=== PATIENT | male | born 1985 | race Caucasian/White ===

== ENCOUNTER 2016-11-05 09:56 | Emergency (ER) | payer SELFPAY ==
[2016-11-05] MEDS ORDERED: NORMAL SALINE 1000 ML 1,000 ML IV ONE (10:18)
[2016-11-05] MEDS ORDERED: LORAZEPAM INJ 2 MG/1 ML VIAL IV ONE ×2 (10:18→13:30)
--- NOTE | 2016-11-05 10:22 | ER Document Report ---
ED Substance Abuse / Acc. OD - General Mode of Arrival: Medic Information source: Patient TRAVEL OUTSIDE OF THE U.S. IN LAST 30 DAYS: No - HPI Patient complains to provider of: Alcohol withdrawal Onset: This morning Associated Symptoms: Other - see notes above <HECTOR SORTO - Last Filed: 11/05/16 10:24> <WILDA LOMBARDO - Last Filed: 11/05/16 14:35> - General Chief Complaint: Alcohol Withdrawl Stated Complaint: WITHDRAWAL Time Seen by Provider: 11/05/16 10:09 Notes: 31 year old male with history of alcohol abuse presents to the ED complaining of alcohol withdrawal that started after he stopped drinking this morning. Patient reports that his last drink was this morning and he stopped because he is 'tired of it.' Patient has been through a detox program at [facility] in August 2015 , but states that he has not reached out to anyone at [facility]. (HECTOR SORTO) - Related Data Allergies/Adverse Reactions: No Known Allergies Allergy (Verified 12/06/13 12:51) Past Medical History - General Information source: Patient - Social History Smoking Status: Never Smoker Frequency of alcohol use: Heavy Family History: Reviewed & Not Pertinent Psychiatric Medical History: Reports: Hx Depression Surgical Hx: Negative - Immunizations Hx Diphtheria, Pertussis, Tetanus Vaccination: Yes <HECTOR SORTO - Last Filed: 11/05/16 10:24> Review of Systems - Review of Systems Constitutional: See HPI, Other - 'alcohol withdrawal' EENT: No symptoms reported Cardiovascular: No symptoms reported Respiratory: No symptoms reported Gastrointestinal: No symptoms reported Genitourinary: No symptoms reported Male Genitourinary: No symptoms reported Musculoskeletal: No symptoms reported Skin: No symptoms reported Hematologic/Lymphatic: No symptoms reported Neurological/Psychological: No symptoms reported -: Yes All other systems reviewed and negative <HECTOR SORTO - Last Filed: 11/05/16 10:24> Physical Exam - General General appearance: Alert, Other - Generalized tremor. In distress: None - HEENT Head: Normocephalic, Atraumatic Eyes: Normal Extraocular movements intact: Yes Pupils: PERRL - Respiratory Respiratory status: No respiratory distress Breath sounds: Normal - Cardiovascular Rhythm: Regular Heart sounds: Normal auscultation Pulses: Normal: Radial - Abdominal Inspection: Normal Distension: No distension Bowel sounds: Normal Tenderness: Nontender - Back Back: Normal - Extremities General upper extremity: Normal inspection, Normal ROM General lower extremity: Normal inspection, Normal ROM - Neurological Neuro grossly intact: Yes - Psychological Associated symptoms: Normal affect, Normal mood - Skin Skin Temperature: Warm Skin Moisture: Dry Skin Color: Normal <HECTOR SORTO - Last Filed: 11/05/16 10:24> Course - Laboratory Result Diagrams: 11/05/16 10:30 11/05/16 10:30 - EKG Interpretation by Ca EKG shows normal: Sinus rhythm, Antlers, QRS Complexes, ST-T Waves. abnormal: Intervals - Borderline prolonged QT interval Rate: Normal - 76 Rhythm: Arrthymia Antlers/QRS: LAHB/LAFB When compared to previous EKG there are: No significant change <WILDA LOMBARDO - Last Filed: 11/05/16 14:35> - Vital Signs Vital signs: Temp Pulse Resp BP Pulse Ox 99.1 F 26 H 156/109 H 97 11/05/16 11:16 11/05/16 12:01 11/05/16 12:01 11/05/16 12:01 - Laboratory Laboratory results interpreted by me: 11/05/16 10:30 BUN 4 L Glucose 112 H AST 232 H ALT 104 H Salicylates < 1.0 L Acetaminophen < 10 L Discharge <SORTO,HECTOR - Last Filed: 11/05/16 10:24> <WILDA LOMBARDO - Last Filed: 11/05/16 14:35> - Discharge Clinical Impression: Alcohol withdrawal Qualifiers: Complication of substance-induced condition: uncomplicated Qualified Code(s): F10.230 - Alcohol dependence with withdrawal, uncomplicated Condition: Stable Disposition: HOME, SELF-CARE Additional Instructions: Alcohol Withdrawal Your symptoms are caused by alcohol withdrawal. After a period of frequent drinking, the brain and body are changed by the alcohol. When you quit or reduce your drinking, the nervous system becomes unstable. Withdrawal symptoms can start a few hours after your last drink, but sometimes don't begin until a couple of days later. Symptoms can include shakiness, sweating, insomnia, nausea , vomiting, fearfulness, hallucinations, and seizures. In addition to the acute effects of alcohol withdrawal, we often have to deal with the medical effects of alcoholism. These problems often include dehydration, stomach irritation, intestinal bleeding, low blood sugar, liver disease, and pancreas inflammation. Treatment for alcohol withdrawal includes mild sedatives, vitamins, and fluids. You need to be with someone who can help if symptoms become severe. Many patients can withdraw at home. Admission to the hospital or a detox facility may be necessary if withdrawal symptoms are severe and uncontrollable. Abstaining from alcohol is the only effective long-term treatment. If you start drinking again, you will not be able to control yourself after the first drink. Treatment programs are available. In addition, many alcoholics benefit from Alcoholics Anonymous or other support groups available through your counselor or cheondoism tar distillation supervisor. AL-ANON and ALA-TEEN are support groups for friends and family members of an alcoholic. Go to the emergency room if you develop persistent vomiting, severe abdominal pain, fever, shortness of breath, hallucinations, uncontrollable tremors, or seizures. [facility] provided with demographic and frequency of use information. Patient to call the [facility] Mobile Crisis Number once discharged so they can assist with detox/rehab placement. Prescriptions: Lorazepam [Ativan 1 mg Tablet] 1 mg PO Q8 #10 tablet Referrals: [facility] [Provider Group] - 11/05/16 (Immediately following discharge call the crisis number) LUIS CARLOS BERMEO DO [Primary Care Provider] - Follow up as needed Scribe Attestation: 11/05/16 14:35 I personally performed the services described in the documentation, reviewed and edited the documentation which was dictated to the scribe in my presence, and it accurately records my words and actions. (WILDA LOMBARDO) Scribe Documentation - Scribe Written by Gabriel:: Gabriel Awad, 11/05/2016 1022 acting as scribe for :: Anahy <HECTOR SORTO - Last Filed: 11/05/16 10:24>
[2016-11-05 10:54] LABS: ABSOLUTE LYMPHOCYTES (AUTO) 0.6 10^3/uL (0.5-4.7); ABSOLUTE MONOCYTES (AUTO) 0.4 10^3/uL (0.1-1.4); ABSOLUTE NEUT (AUTO) 3.2 10^3/uL (1.7-8.2); BASOPHILS % (AUTO) 0.7 % (0-2); EOSINOPHILS % (AUTO) 0.1 % (0-6); HEMATOCRIT 44.1 % (37.9-51.0); HEMOGLOBIN 14.9 g/dL (13.5-17.0); HGB HCT DIFFERENCE 0.6; LYMPHOCYTES % (AUTO) 13.4 % (13-45); MEAN CORPUSCULAR HEMOGLOBIN 32.6 pg (27.0-33.4); MEAN CORPUSCULAR HGB CONC 33.8 g/dL (32.0-36.0); MEAN CORPUSCULAR VOLUME 96 fl (80-97); MONOCYTES % (AUTO) 9.8 % (3-13); RED BLOOD COUNT 4.57 10^6/uL (4.35-5.55); RED CELL DISTRIBUTION WIDTH 13.8 % (11.5-14.0); WHITE BLOOD COUNT 4.3 10^3/uL (4.0-10.5)
[2016-11-05 11:14] LABS: ALANINE AMINOTRANSFERASE 104 U/L (21-72); ALBUMIN 4.1 g/dL (3.5-5.0); ALCOHOL 12 mg/dL (NONE DETECTED); ALKALINE PHOSPHATASE 83 U/L (38-126); ANION GAP 14 (5-19); ASPARTATE AMINO TRANSFERASE 232 U/L (17-59); BILIRUBIN,DIRECT 0.4 mg/dL (0.0-0.4); BILIRUBIN,TOTAL 0.8 mg/dL (0.2-1.3); BLOOD UREA NITROGEN 4 mg/dL (7-20); CALCIUM 9.1 mg/dL (8.4-10.2); CARBON DIOXIDE 23 mmol/L (22-30); CHLORIDE 101 mmol/L (98-107); CREATININE RESULT 0.66 mg/dL (0.52-1.25); GLUCOSE 112 mg/dL (75-110); POTASSIUM 3.7 mmol/L (3.6-5.0); SODIUM 138.2 mmol/L (137-145); TOTAL PROTEIN 7.4 g/dL (6.3-8.2)
[2016-11-05 11:47] LABS: APPEARANCE,URINE CLEAR; BILIRUBIN,URINE NEGATIVE (NEGATIVE); GLUCOSE, URINE NEGATIVE (NEGATIVE); KETONES,URINE NEGATIVE (NEGATIVE); LEUKOCYTE ESTERASE,URINE NEGATIVE (NEGATIVE); NITRITE,URINE NEGATIVE (NEGATIVE); PROTEIN,URINE NEGATIVE (NEGATIVE); URINE SPECIFIC GRAVITY 1.005; UROBILINOGEN,URINE NEGATIVE mg/dL (<2.0)
[2016-11-05 12:10] LABS: URINE BARBITURATES SCREEN NEGATIVE; URINE METHADONE SCREEN NEGATIVE; URINE OPIATES LOW NEGATIVE; URINE PHENCYCLIDINE SCREEN NEGATIVE
--- NOTE | 2016-11-05 14:20 | ER Document Report ---
Addendum entered and electronically signed by CRISTINO SAGE LPC 11/05/16 19: 35: ED Psych Disorder / Suicide - General Chief Complaint: Alcohol Withdrawl Stated Complaint: WITHDRAWAL Time Seen by Provider: 11/05/16 10:09 Mode of Arrival: Ambulatory TRAVEL OUTSIDE OF THE U.S. IN LAST 30 DAYS: No - HPI Notes: Initial evaluation conducted 11/05/2016 at 1242. Patient is a 31 year old male who presented to the ED today for alcohol withdrawal and detox. He reported his last drinks were at midnight last night and then 0600 this morning. He identified for the past year he has drank 18-20 12 ounce Natural Light beers a day. He stated he hasn't been eating because the beer has been filling him up and he hasn't been hungry. He noted he had been picking at his lunch try trying to eat a little. He confirmed previous inpatient detox/rehab, the most recent was August 2015 at [facility] in [place]. He stated he has gone 1.5 years of sobriety. He reported a seizure history from withdrawal. He stated he felt like he had one this morning but EMS told him it wasn't one. He stated he felt like he was "jerking around and his eyes were rolling back in his head." Observed patient slightly shaky and trembly. He denied SI/HI. He stated he did follow up with [facility] in August 2015 (not sure if her meant the detox or if he had follow up at local agency afterwards). Patient was alert and oriented. Mood was depressed with congruent affect though patient was likely starting to begin alcohol withdrawal. He denied SI/HI. He did not appear to be responding to internal stimuli AEB his ability to stay focused and answering questions appropriately when addressed. Thought processes were linear. Conversational speech was soft in tone yet audible and understandable. Intellectual abilities are estimated to be average. Insight, judgment and impulse control are fair AEB seeking help. 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 Psychiatrically he is cleared. He does not meet IVC criteria. He denied SI/HI, and there was no observed psychosis. Also none of these were presenting concerns. Contacted [facility], spoke to Mai, and provided basic demographic information as well as substance of use (frequency, amount, last use, etc.). Provided patient with outpatient resource sheet with emphasis on [facility] number. Informed him this clinician had already provided information and he just needs to call the number back once discharged from the ED so they can assist in finding him inpatient detox. Consulted with Dr. Marquez regarding the management and care of patient. ED Doctor in agreement with recommendations. - Related Data Allergies/Adverse Reactions: No Known Allergies Allergy (Verified 12/06/13 12:51) Original Note: ED Psych Disorder / Suicide - General Chief Complaint: Alcohol Withdrawl Stated Complaint: WITHDRAWAL Time Seen by Provider: 11/05/16 10:09 Mode of Arrival: Ambulatory Information source: Patient TRAVEL OUTSIDE OF THE [place] IN LAST 30 DAYS: No - HPI Patient complains to provider of: Other - ETOH Withdrawal and wanting detox Suicide Risk Factors: Male, Substance abuse Normal mood: No Associated symptoms: Depressed Similar symptoms previously: Yes Notes: Patient is a 31 year old male who presented to the ED today for ETOH withdrawal and seeking detox. - Related Data Allergies/Adverse Reactions: No Known Allergies Allergy (Verified 12/06/13 12:51) Past Medical History - General Information source: Patient - Social History Smoking Status: Never Smoker Chew tobacco use (# tins/day): No Frequency of alcohol use: Heavy Drug Abuse: None Family History: Reviewed & Not Pertinent Psychiatric Medical History: Reports: Hx Depression Surgical Hx: Negative - Immunizations Hx Diphtheria, Pertussis, Tetanus Vaccination: Yes Physical Exam - Vital signs Vitals: Resp Pulse Ox 19 97 11/05/16 10:11 11/05/16 10:11 Course - Vital Signs Vital signs: Temp Pulse Resp BP Pulse Ox 99.1 F 26 H 156/109 H 97 11/05/16 11:16 11/05/16 12:01 11/05/16 12:01 11/05/16 12:01 - Laboratory Result Diagrams: 11/05/16 10:30 11/05/16 10:30 Laboratory results interpreted by me: 11/05/16 10:30 BUN 4 L Glucose 112 H AST 232 H ALT 104 H Salicylates < 1.0 L Acetaminophen < 10 L Discharge - Discharge Clinical Impression: Alcohol withdrawal Additional Instructions: Alcohol Withdrawal Your symptoms are caused by alcohol withdrawal. After a period of frequent drinking, the brain and body are changed by the alcohol. When you quit or reduce your drinking, the nervous system becomes unstable. Withdrawal symptoms can start a few hours after your last drink, but sometimes don't begin until a couple of days later. Symptoms can include shakiness, sweating, insomnia, nausea , vomiting, fearfulness, hallucinations, and seizures. In addition to the acute effects of alcohol withdrawal, we often have to deal with the medical effects of alcoholism. These problems often include dehydration, stomach irritation, intestinal bleeding, low blood sugar, liver disease, and pancreas inflammation. Treatment for alcohol withdrawal includes mild sedatives, vitamins, and fluids. You need to be with someone who can help if symptoms become severe. Many patients can withdraw at home. Admission to the hospital or a detox facility may be necessary if withdrawal symptoms are severe and uncontrollable. Abstaining from alcohol is the only effective long-term treatment. If you start drinking again, you will not be able to control yourself after the first drink. Treatment programs are available. In addition, many alcoholics benefit from Alcoholics Anonymous or other support groups available through your counselor or jain proof sorter. AL-ANON and ALA-TEEN are support groups for friends and family members of an alcoholic. Go to the emergency room if you develop persistent vomiting, severe abdominal pain, fever, shortness of breath, hallucinations, uncontrollable tremors, or seizures. [facility] Mobile [facility] provided with demographic and frequency of use information. Patient to call the [facility] Mobile Crisis Number once discharged so they can assist with detox/rehab placement. Referrals: LUIS CARLOS BERMEO DO [Primary Care Provider] - Follow up as needed [facility] [Provider Group] - 11/05/16 (Immediately following discharge call the crisis number)
[2016-11-05 15:11] VITALS: BP 158/99
--- NOTE | 2016-11-05 17:57 | EKG REPORT ---
SEVERITY:- ABNORMAL ECG - SINUS ARRHYTHMIA, RATE 59-101 LEFT ANTERIOR FASCICULAR BLOCK BORDERLINE PROLONGED QT INTERVAL : Confirmed by: Marianna Larry MD 05-Nov-2016 17:55:47
== END 2016-11-05 15:11 | disposition home or self-care (01) ==
LOC: ER 09:56
DX: F10.239 Alcohol dependence with withdrawal, unspecified (principal)
CPT/HCPCS: 93005; 96376; 99285; 96374; 36415; 80307 ×4; 85025; 80053; 81001; 93010; J2060; J7030

== ENCOUNTER 2016-11-08 09:12 | Emergency (ER) | payer SELFPAY ==
--- NOTE | 2016-11-08 09:23 | ER Document Report ---
ED General - General Mode of Arrival: Ambulatory Information source: Patient TRAVEL OUTSIDE OF THE [place]. IN LAST 30 DAYS: No - HPI Onset: Other - Refer to HPI notes Similar symptoms previously: Yes Recently seen / treated by doctor: Yes <SIMON SPARKS - Last Filed: 11/08/16 09:42> <WILDA LOMBARDO - Last Filed: 11/08/16 10:09> - General Stated Complaint: POSSIBLE ETOH Time Seen by Provider: 11/08/16 09:18 Notes: Patient is a 31 year old male presenting to the emergency department for EtOH detoxification. Patient was seen in this department on 11/05/16 for the same and was evaluated by the mental health team, sent home with Ativan, and told to follow up with [facility] for detox. Patient states he did not take the advice and follow his discharge instructions. Patient states he has called [facility] and they told him to come to the ED. Patient drank 18 beers over the last 24 hours. Patient states he did not drink any EtOH since he was discharged on Saturday (11/05) until he had the 18 pack. Patient has been to [facility] for detox in August 2015. Patient has no known drug allergies. (SIMON SPARKS) - Related Data Allergies/Adverse Reactions: No Known Allergies Allergy (Verified 12/06/13 12:51) Past Medical History - General Information source: Patient - Social History Smoking Status: Never Smoker Cigarette use (# per day): No Chew tobacco use (# tins/day): No Frequency of alcohol use: Heavy Drug Abuse: None Family History: None Patient has suicidal ideation: No Patient has homicidal ideation: No Psychiatric Medical History: Reports: Hx Depression Surgical Hx: Negative - Immunizations Hx Diphtheria, Pertussis, Tetanus Vaccination: Yes <SIMON SPARKS - Last Filed: 11/08/16 09:42> Review of Systems - Review of Systems Constitutional: See HPI EENT: No symptoms reported Cardiovascular: No symptoms reported Respiratory: No symptoms reported Gastrointestinal: No symptoms reported Genitourinary: No symptoms reported Male Genitourinary: No symptoms reported Musculoskeletal: No symptoms reported Skin: No symptoms reported Hematologic/Lymphatic: No symptoms reported Neurological/Psychological: No symptoms reported -: Yes All other systems reviewed and negative <SIMON SPARKS - Last Filed: 11/08/16 09:42> Physical Exam - General General appearance: Appears well, Alert In distress: Mild - HEENT Head: Normocephalic, Atraumatic Eyes: Normal Pupils: PERRL Mucous membranes: Moist - Respiratory Respiratory status: No respiratory distress Chest status: Nontender Breath sounds: Normal Chest palpation: Normal - Cardiovascular Rhythm: Regular Heart sounds: Normal auscultation Murmur: No - Abdominal Inspection: Normal Distension: No distension Bowel sounds: Normal Tenderness: Nontender Organomegaly: No organomegaly - Back Back: Normal, Nontender - Extremities General upper extremity: Normal inspection, Normal ROM, Normal strength General lower extremity: Normal inspection, Normal ROM, Normal strength - Neurological Neuro grossly intact: Yes Cognition: Normal Orientation: AAOx4 [place] Coma Scale Eye Opening: Spontaneous [place] Coma Scale Verbal: Oriented [place] Coma Scale Motor: Obeys Commands [place] Coma Scale Total: 15 Speech: Normal - Psychological Associated symptoms: Normal affect, Normal mood - Skin Skin Temperature: Warm Skin Moisture: Dry <SIMON SPARKS - Last Filed: 11/08/16 09:42> Course - Laboratory Result Diagrams: 11/08/16 09:26 11/08/16 09:26 <SIMON SPARKS - Last Filed: 11/08/16 09:42> - Laboratory Result Diagrams: 11/08/16 09:26 11/08/16 09:26 <WILDA LOMBARDO - Last Filed: 11/08/16 10:09> - Re-evaluation Re-evalutation: 11/08/16 10:03 The patient's alcohol level was undetectable, and he is beginning to have some shakes at this time. He will be given a dose of potassium for a potassium of 3.2, and a dose of Ativan prior to discharge over [facility]. (WILDA LOMBARDO) - Laboratory Laboratory results interpreted by me: 11/08/16 11/08/16 09:26 09:26 Seg Neutrophils % 81.9 H Lymphocytes % 9.5 L Potassium 3.2 L Glucose 116 H AST 189 H ALT 131 H Discharge <SIMON SPARKS - Last Filed: 11/08/16 09:42> <WILDA LOMBARDO - Last Filed: 11/08/16 10:09> - Discharge Clinical Impression: Alcoholism Condition: Stable Disposition: HOME, SELF-CARE Additional Instructions: Your lab work today was unremarkable other than a potassium level that was a little low. Your given a dose of potassium. You should increase potassium in your diet. Go to [facility] now to start the process for an alcohol detox program. Referrals: LUIS CARLOS BERMEO, [Primary Care Provider] - Follow up as needed [facility] [Provider Group] - 11/08/16 Jannaibe Attestation: 11/08/16 10:03 I personally performed the services described in the documentation, reviewed and edited the documentation which was dictated to the scribe in my presence, and it accurately records my words and actions. (WILDA LOMBARDO) Scribe Documentation - Scribe Written by Gabriel:: Gabriel Reyes 11/08/16 9:41 acting as scribe for :: Anahy <SIMON SPARKS - Last Filed: 11/08/16 09:42>
[2016-11-08 09:37] LABS: ABSOLUTE LYMPHOCYTES (AUTO) 0.8 10^3/uL (0.5-4.7); ABSOLUTE MONOCYTES (AUTO) 0.7 10^3/uL (0.1-1.4); ABSOLUTE NEUT (AUTO) 6.8 10^3/uL (1.7-8.2); BASOPHILS % (AUTO) 0.4 % (0-2); EOSINOPHILS % (AUTO) 0.3 % (0-6); HEMATOCRIT 43.3 % (37.9-51.0); HEMOGLOBIN 14.7 g/dL (13.5-17.0); HGB HCT DIFFERENCE 0.8; LYMPHOCYTES % (AUTO) 9.5 % (13-45); MEAN CORPUSCULAR VOLUME 97 fl (80-97); MONOCYTES % (AUTO) 7.9 % (3-13); RED BLOOD COUNT 4.47 10^6/uL (4.35-5.55); RED CELL DISTRIBUTION WIDTH 13.6 % (11.5-14.0); SEGMENTED NEUTROPHILS % (AUTO) 81.9 % (42-78); WHITE BLOOD COUNT 8.3 10^3/uL (4.0-10.5)
[2016-11-08 09:56] LABS: ALANINE AMINOTRANSFERASE 131 U/L (21-72); ALBUMIN 4.3 g/dL (3.5-5.0); ALKALINE PHOSPHATASE 75 U/L (38-126); ANION GAP 13 (5-19); ASPARTATE AMINO TRANSFERASE 189 U/L (17-59); BILIRUBIN,DIRECT 0.4 mg/dL (0.0-0.4); BLOOD UREA NITROGEN 8 mg/dL (7-20); CALCIUM 9.3 mg/dL (8.4-10.2); CARBON DIOXIDE 22 mmol/L (22-30); CHLORIDE 105 mmol/L (98-107); CREATININE RESULT 0.71 mg/dL (0.52-1.25); GLUCOSE 116 mg/dL (75-110); MAGNESIUM 1.7 mg/dL (1.6-2.3); POTASSIUM 3.2 mmol/L (3.6-5.0); SODIUM 140.1 mmol/L (137-145); TOTAL PROTEIN 7.4 g/dL (6.3-8.2)
[2016-11-08 10:00] LABS: ALCOHOL < 10 mg/dL (NONE DETECTED)
[2016-11-08] MEDS ORDERED: POTASSIUM CHLORIDE 10 MEQ TABLET.SA PO ONE (10:00)
[2016-11-08] MEDS ORDERED: LORAZEPAM 1 MG TABLET PO ONE (10:01)
[2016-11-08 10:40] LABS: APPEARANCE,URINE CLEAR; BILIRUBIN,URINE NEGATIVE (NEGATIVE); GLUCOSE, URINE NEGATIVE (NEGATIVE); KETONES,URINE NEGATIVE (NEGATIVE); LEUKOCYTE ESTERASE,URINE NEGATIVE (NEGATIVE); NITRITE,URINE NEGATIVE (NEGATIVE); PROTEIN,URINE NEGATIVE (NEGATIVE); URINE SPECIFIC GRAVITY 1.008; UROBILINOGEN,URINE NEGATIVE mg/dL (<2.0)
[2016-11-08 10:46] VITALS: BP 144/88
== END 2016-11-08 10:56 | disposition home or self-care (01) ==
LOC: ER 09:12
DX: F10.20 Alcohol dependence, uncomplicated (principal)
CPT/HCPCS: 36415; 80053; 80307; 81001; 83690; 83735; 85025; 99284

== ENCOUNTER 2017-02-12 22:21 | Emergency (ER) | payer SELFPAY ==
[2017-02-12 23:06] VITALS: BP 113/66
--- NOTE | 2017-02-13 01:22 | RADIOLOGY REPORT (SQ) ---
EXAM DESCRIPTION: CT HEAD WITHOUT COMPLETED DATE/TIME: 02/13/2017 12:31 am REASON FOR STUDY: trauma COMPARISON: None. TECHNIQUE: Axial images acquired through the brain without intravenous contrast. Images reviewed wi th bone, brain and subdural windows. Images stored on PACS. All CT scanners at this facility use dose modulation, iterative reconstruction, and/or weight based d osing when appropriate to reduce radiation dose to as low as reasonably achievable (ALARA). [facility]: Dose Right [facility]: CareDose [facility]: Dose Right [facility]: Teradose 4D [facility]: [employer] RADIATION DOSE: Up-to-date CT equipment and radiation dose reduction techniques were employed. CTDIv ol: 64.6 mGy. DLP: 1292 mGy-cm. mGy. LIMITATIONS: None. FINDINGS: VENTRICLES: Normal size and contour. CEREBRUM: No masses. No hemorrhage. No midline shift. No evidence for acute infarction. Normal gra y/white matter differentiation. No areas of low density in the white matter. CEREBELLUM: No masses. No hemorrhage. No alteration of density. No evidence for acute infarction. EXTRAAXIAL SPACES: No fluid collections. No masses. ORBITS AND GLOBE: No intra- or extraconal masses. Normal contour of globe without masses. CALVARIUM: No fracture. PARANASAL SINUSES: No fluid or mucosal thickening. SOFT TISSUES: No mass or hematoma. OTHER: No other significant finding. IMPRESSION: NORMAL BRAIN CT WITHOUT CONTRAST. EVIDENCE OF ACUTE STROKE: NO. COMMENT: Quality ID # [id number]: Final reports with documentation of one or more dose reduction techniques (e.g., Automated exposure control, adjustment of the mA and/or kV according to patient size, use of iterative reconstruction technique) TECHNICAL DOCUMENTATION: JOB ID: [id number]- All Rights Reserved
--- NOTE | 2017-02-13 01:28 | RADIOLOGY REPORT (SQ) ---
EXAM DESCRIPTION: CT FACIAL AREA WITHOUT COMPLETED DATE/TIME: 02/13/2017 12:31 am REASON FOR STUDY: trauma COMPARISON: None. TECHNIQUE: Noncontrasted images through the facial bones and orbits windowed for bone and soft tissu e. Additional coronal and sagittal reconstructed images reviewed. All images stored on PACS. All CT scanners at this facility use dose modulation, iterative reconstruction, and/or weight based d osing when appropriate to reduce radiation dose to as low as reasonably achievable (ALARA). [facility]: Dose Right [facility]: CareDose [facility]: Dose Right [facility]: Teradose 4D [facility]: [employer] RADIATION DOSE: Up-to-date CT equipment and radiation dose reduction techniques were employed. CTDIv ol: 30.4 mGy. DLP: 515 mGy-cm. mGy. LIMITATIONS: None. FINDINGS: FACIAL BONES: No fracture or bone lesion. ORBITS: Intact. No fracture. Symmetric intact globes and retroorbital soft tissues. PARANASAL SINUSES: Clear. No significant mucosal thickening, mass or fluid. No nasal polyps. Maxill tico sinus outlets are patent. SOFT TISSUES: No mass or edema. INFERIOR BRAIN: Limited view. No acute findings. OTHER: No other significant finding. IMPRESSION: NO ACUTE FINDINGS. TECHNICAL DOCUMENTATION: JOB ID: [id number] Quality ID # [id number]: Final reports with documentation of one or more dose reduction techniques (e.g., Au tomated exposure control, adjustment of the mA and/or kV according to patient size, use of iterative reconstruction technique) 2010 [employer]- All Rights Reserved
--- NOTE | 2017-02-13 01:30 | RADIOLOGY REPORT (SQ) ---
EXAM DESCRIPTION: CT CERVICAL SPINE WITHOUT COMPLETED DATE/TIME: 02/13/2017 12:31 am REASON FOR STUDY: trauma COMPARISON: None. TECHNIQUE: Axial images acquired through the cervical spine without intravenous contrast. Images re viewed with lung, soft tissue and bone windows. Reconstructed coronal and sagittal MPR images review ed. Images stored on PACS. All CT scanners at this facility use dose modulation, iterative reconstruction, and/or weight based d osing when appropriate to reduce radiation dose to as low as reasonably achievable (ALARA). [facility]: Dose Right [facility]: CareDose [facility]: Dose Right [facility]: Teradose 4D [facility]: [employer] RADIATION DOSE: Up-to-date CT equipment and radiation dose reduction techniques were employed. CTDIv ol: 22.1 mGy. DLP: 446 mGy-cm. mGy. LIMITATIONS: None. FINDINGS: ALIGNMENT: Anatomic. MINERALIZATION: Normal. VERTEBRAL BODIES: No fractures or dislocation. DISCS: No significant disc disease. FACETS, LATERAL MASSES, POSTERIOR ELEMENTS: No fractures. No dislocation. No acute findings. HARDWARE: None in the spine. VISUALIZED RIBS: No fractures. LUNG APICES AND SOFT TISSUES: No significant or acute findings. OTHER: No other significant finding. IMPRESSION: NO ACUTE OR SIGNIFICANT FINDINGS IN THE CERVICAL SPINE. TECHNICAL DOCUMENTATION: JOB ID: [id number] Quality ID # [id number]: Final reports with documentation of one or more dose reduction techniques (e.g., Au tomated exposure control, adjustment of the mA and/or kV according to patient size, use of iterative reconstruction technique) 2010 [email or web address]- All Rights Reserved
--- NOTE | 2017-02-13 01:32 | RADIOLOGY REPORT (SQ) ---
EXAM DESCRIPTION: RIBS BILATERAL W/PA CXR COMPLETED DATE/TIME: 02/13/2017 12:36 am REASON FOR STUDY: trauma COMPARISON: None. TECHNIQUE: Frontal view of the chest and additional views of the right and left ribs acquired. NUMBER OF VIEWS: Four view. LIMITATIONS: None. FINDINGS: FRONTAL CXR: No pneumothorax. No pleural effusion. No atelectasis or infiltrates. RIBS: No displaced rib fractures. No lytic or blastic bony lesions. OTHER: No other significant finding. IMPRESSION: NO PNEUMOTHORAX. NO DISPLACED RIB FRACTURES. COMMENT: SITE OF TRAUMA/COMPLAINT MARKED/STAMP COMPLETED: NO. TECHNICAL DOCUMENTATION: JOB ID: [id number] [employer]- All Rights Reserved
--- NOTE | 2017-02-13 01:43 | ER Document Report ---
ED General - General Chief Complaint: Facial Injury Stated Complaint: FALL, RIB AND FACIAL INJURIES Time Seen by Provider: 02/12/17 23:07 TRAVEL OUTSIDE OF THE [place] IN LAST 30 DAYS: No - Related Data Allergies/Adverse Reactions: No Known Allergies Allergy (Verified 12/06/13 12:51) Past Medical History - Social History Smoking Status: Current Every Day Smoker Frequency of alcohol use: Heavy Drug Abuse: None Family History: None Patient has suicidal ideation: No Patient has homicidal ideation: No Renal/ Medical History: Denies: Hx Peritoneal Dialysis Psychiatric Medical History: Reports: Hx Depression - Immunizations Hx Diphtheria, Pertussis, Tetanus Vaccination: Yes Physical Exam - Vital signs Vitals: Temp Pulse Resp BP Pulse Ox 97 F L 99 18 113/66 100 02/12/17 23:00 02/12/17 23:00 02/12/17 23:00 02/12/17 23:00 02/12/17 23:00 Course - Re-evaluation Re-evalutation: 02/13/17 01:38 I went back to the patient's room a few times. Patient is not there. I spoke with the charge nurse. Charge nurse says it appears that the patient has eloped. The charge nurse says that she try to call the patient's mother. She left a message for the patient's mother. I was able to call the patient and contact him. I told the patient all his CT scans and x-rays were negative. I informed him that we would like him to come back next week and clean his wound. I informed him that I would still prescribe him antibiotics and gabapentin to help prevent withdrawal. I asked him what pharmacy he goes to. Informed me [facility] in [facility]. I did electronically sent the prescriptions to [facility] pharmacy. I informed him that he needs to pick these prescriptions up first thing in the morning. 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 Patient is agreeable to this. Dictation of this chart was performed using voice recognition software; therefore, there may be some unintended grammatical errors. 02/13/17 01:50 - Vital Signs Vital signs: Temp Pulse Resp BP Pulse Ox 97 F L 99 20 113/66 98 02/12/17 23:00 02/12/17 23:00 02/12/17 23:18 02/12/17 23:00 02/13/17 00:00 Discharge - Discharge Clinical Impression: Laceration Alcohol intoxication Qualifiers: Complication of substance-induced condition: uncomplicated Qualified Code(s): F10.920 - Alcohol use, unspecified with intoxication, uncomplicated Facial contusion Qualifiers: Encounter type: initial encounter Qualified Code(s): S00.83XA - Contusion of other part of head, initial encounter Condition: Stable Disposition: ELOPED Prescriptions: Clindamycin HCl 300 mg PO ASDIR #56 capsule Gabapentin 400 mg PO ASDIR PRN #22 capsule PRN Reason: Referrals: LUIS CARLOS BERMEO DO [Primary Care Provider] - Follow up as needed
== END 2017-02-13 02:01 | disposition left against medical advice (07) ==
LOC: ER 22:21
DX: S00.83XA Contusion of other part of head, initial encounter (principal); S29.9XXA Unspecified injury of thorax, initial encounter; F10.920 Alcohol use, unspecified with intoxication, uncomplicated; W01.10XA Fall on same level from slipping, tripping and stumbling with subsequent striking against unspecified object, initial encounter
CPT/HCPCS: 70450; 70486; 71111; 72125; 99284

== ENCOUNTER 2017-02-13 02:57 | Emergency (ER) | payer SELFPAY ==
[2017-02-12] MEDS: GABAPENTIN 400 MG CAPSULE PO SCH (04:15)
--- NOTE | 2017-02-13 03:17 | ER Document Report ---
ED General - General TRAVEL OUTSIDE OF THE [place] IN LAST 30 DAYS: No <CHAI SUTTON - Last Filed: 02/13/17 06:01> <JAVI WILLS - Last Filed: 02/13/17 14:10> - General Stated Complaint: RIB PAIN,FACIAL LACERATION Time Seen by Provider: 02/13/17 03:02 Notes: Patient is a 31-year-old male who I took care of earlier in the day. At that time he eloped after having CT scans and x-rays performed. All his x-rays and CT scans were negative. He has come back now. He went home and drink more alcohol. He is back for reevaluation. He apparently was called and visited by the police because he had left the ER with his IV in place. Patient then agreed to come to the ER. Patient does admit to drinking more alcohol. I did talk to him about getting help for his alcohol use. He is agreeing to stay to try to get further help and to speak with psychiatry about inpatient and outpatient resources. Patient does have a laceration of the right forehead that is 3 days old. He has not had any redness or abnormal discharge from the area. (CHAI SUTTON) - Related Data Allergies/Adverse Reactions: No Known Allergies Allergy (Verified 12/06/13 12:51) Past Medical History - Social History Smoking Status: Current Some Day Smoker Frequency of alcohol use: Heavy Drug Abuse: None Family History: None Renal/ Medical History: Denies: Hx Peritoneal Dialysis Psychiatric Medical History: Reports: Hx Depression - Immunizations Hx Diphtheria, Pertussis, Tetanus Vaccination: Yes <CHAI SUTTON - Last Filed: 02/13/17 06:01> Review of Systems <CHAI SUTTON - Last Filed: 02/13/17 06:01> <JAVI WILLS - Last Filed: 02/13/17 14:10> - Review of Systems Notes: My Normal Review Basic REVIEW OF SYSTEMS: CONSTITUTIONAL : Denies fever, chills, or sweats. Denies recent illness. EENT: Denies eye, ear, throat, or mouth pain or symptoms. Denies nasal or sinus congestion. CARDIOVASCULAR: Denies chest pain. RESPIRATORY: Denies cough, cold, or chest congestion. Denies shortness of breath, difficulty breathing, or wheezing. GASTROINTESTINAL: Denies abdominal pain. Denies nausea, vomiting, or diarrhea. Denies constipation. Last BM: MUSCULOSKELETAL: Denies neck or back pain or joint pain or swelling. SKIN: Laceration to right forehead.. NEUROLOGICAL: Denies altered mental status or loss of consciousness. Denies headache. Denies weakness or paralysis or loss of use of either side. Denies problems with gait or speech. Denies sensory or motor loss. ALL OTHER SYSTEMS REVIEWED AND NEGATIVE. (CHAI SUTTON) Physical Exam <CHAI SUTTON - Last Filed: 02/13/17 06:01> <JAVI WILLS - Last Filed: 02/13/17 14:10> - Vital signs Vitals: Temp Pulse Resp BP Pulse Ox 97.5 F 101 H 20 123/76 98 02/13/17 03:01 02/13/17 03:01 02/13/17 03:01 02/13/17 03:01 02/13/17 03:01 - Notes Notes: General Appearance: Well nourished, alert, cooperative, no acute distress, no obvious discomfort. Obvious intoxicated. Vitals: reviewed, See vital signs table. Head: Some mildly for semi-laceration of the right forehead. Laceration has started to granulate in some. No abnormal discharge. Some bruising around the right eye. Eyes: PERRL, EOMI, Conjuctiva clear Mouth: No decreasd moisture Neck: Supple, no neck tenderness Lungs: No wheezing, No rales, No rhonci, No accessory muscle use, good air exchange bilaterally. Heart: Normal rate, Regular rythm, No murmur, no rub Abdomen: Normal BS, soft, No rigidity, No abdominal tenderness, No guarding, no rebound Extremities: strength 5/5 in all extremities, good pulses in all extremities, no swelling or tenderness in the extremities, no edema. Skin: warm, dry, appropriate color, no rash Neuro: speech clear, oriented x 3, normal affect, responds appropriately to questions. (CHAI SUTTON) Course - Laboratory Result Diagrams: 02/13/17 03:13 02/13/17 03:13 <CHAI SUTTON - Last Filed: 02/13/17 06:01> - Laboratory Result Diagrams: 02/13/17 03:13 02/13/17 03:13 <JAVI WILLS - Last Filed: 02/13/17 14:10> - Re-evaluation Re-evalutation: 02/13/17 06:01 Patient is still highly intoxicated. His alcohol level when he returned was over 400. He obviously went home and drank a large amount of alcohol after he eloped from the ER earlier. I have put a consult for him to speak with psychiatry if he is willing to once he is sober. He can talk to him about alcohol rehab with both inpatient and outpatient resources. I have placed him on gabapentin to help prevent withdrawal here. Patient will need to be continually monitored for withdrawal symptoms while he is here in the ER. Patient checked out to morning ER physician, Dr. Wills. Patient does have the laceration of the right forehead. As I informed patient at his last visit was only loosely close this laceration with Steri-Strips. I do not want a Greer close it as I feel that this will cause increased risk of infection. I will release loosely closed with the help give some cosmetic benefit. I did thoroughly irrigate the laceration cleaned with chlorhexidine. I will place him on antibiotics. I have already sent prescriptions for both gabapentin and clindamycin to his pharmacy at [facility]. These were electronically transferred last night. Dictation of this chart was performed using voice recognition software; therefore, there may be some unintended grammatical errors. 02/13/17 06:03 (CHAI SUTTON) - Vital Signs Vital signs: Temp Pulse Resp BP Pulse Ox 97.5 F 92 17 112/67 98 02/13/17 07:17 02/13/17 07:17 02/13/17 07:17 02/13/17 07:17 02/13/17 07:17 - Laboratory Laboratory results interpreted by me: 02/13/17 02/13/17 03:13 03:13 RBC 2.94 L Hgb 9.5 L Hct 27.0 L Sodium 147.1 H Chloride 108 H BUN 6 L Glucose 136 H Salicylates < 1.0 L Acetaminophen < 10 L Serum Alcohol 402 H* - EKG Interpretation by Me Additional EKG results interpreted by me: 02/13/17 03:16 EKG is reviewed and interpreted by me. EKG shows normal sinus rhythm with rate of [address] segment elevation or depression. No ischemic T-wave inversions. DC interval and QTc intervals are within normal range. QRS duration is slightly prolonged. Old EKG for comparison is from November 05, 2016. ( CHAI SUTTON) Procedures - Laceration/Wound Repair rigth forehead Wound length (cm): 4 Wound's Depth, Shape: Linear Wound explored: Clean, No foreign body removed Irrigated w/ Saline (mLs): 240 Wound Repaired With: Steri-strips <CHAI SUTTON - Last Filed: 02/13/17 06:01> <JAVI WILLS - Last Filed: 02/13/17 14:10> - Laceration/Wound Repair rigth forehead Notes: 02/13/17 04:50 Wound was very loosely approximated with a small gap in the wound being that it is an old wound. I used Steri-Strips just to bring the wound a little bit closer together to help give a small scar at time of healing. I did not fully close the wound as I feel that this would cause an increased risk of infection being that it is an older wound. (CHAI SUTTON) Discharge <CHAI SUTTON - Last Filed: 02/13/17 06:01> <JAVI WILLS - Last Filed: 02/13/17 14:10> - Discharge Clinical Impression: Laceration Alcohol intoxication Qualifiers: Complication of substance-induced condition: uncomplicated Qualified Code(s): F10.920 - Alcohol use, unspecified with intoxication, uncomplicated Condition: Stable Disposition: PSYCH HOSP/UNIT Additional Instructions: I have sent prescriptions to your [facility] pharmacy on [facility] [address] [facility]. They are waiting for you to pick them up there once you are discharged. Please return to the ER immediately if you have any redness or swelling of your laceration, fevers, foul smelling drainage from the cut, symptoms of worsening withdrawal despite taking the medications, any seizure-like activity, or if you feel that you are worsening in any way. Please try to cut back on her alcohol. Continued use of large amounts of alcohol will lead to your . Referrals: LUIS CARLOS BERMEO DO [Primary Care Provider] - 02/15/17
[2017-02-13 03:25] LABS: ABSOLUTE LYMPHOCYTES (AUTO) 2.7 10^3/uL (0.5-4.7); ABSOLUTE MONOCYTES (AUTO) 0.4 10^3/uL (0.1-1.4); ABSOLUTE NEUT (AUTO) 4.3 10^3/uL (1.7-8.2); BASOPHILS % (AUTO) 0.2 % (0-2); EOSINOPHILS % (AUTO) 0.3 % (0-6); HEMOGLOBIN 9.5 g/dL (13.5-17.0); HGB HCT DIFFERENCE 1.5; LYMPHOCYTES % (AUTO) 35.9 % (13-45); MEAN CORPUSCULAR HEMOGLOBIN 32.4 pg (27.0-33.4); MEAN CORPUSCULAR HGB CONC 35.3 g/dL (32.0-36.0); MEAN CORPUSCULAR VOLUME 92 fl (80-97); MONOCYTES % (AUTO) 5.8 % (3-13); RED BLOOD COUNT 2.94 10^6/uL (4.35-5.55); RED CELL DISTRIBUTION WIDTH 13.8 % (11.5-14.0); SEGMENTED NEUTROPHILS % (AUTO) 57.8 % (42-78); WHITE BLOOD COUNT 7.5 10^3/uL (4.0-10.5)
[2017-02-13 03:48] LABS: ALANINE AMINOTRANSFERASE 34 U/L (21-72); ALBUMIN 4.1 g/dL (3.5-5.0); ALKALINE PHOSPHATASE 55 U/L (38-126); ANION GAP 13 (5-19); ASPARTATE AMINO TRANSFERASE 43 U/L (17-59); BILIRUBIN,DIRECT 0.3 mg/dL (0.0-0.4); BILIRUBIN,TOTAL 0.4 mg/dL (0.2-1.3); BLOOD UREA NITROGEN 6 mg/dL (7-20); CALCIUM 8.7 mg/dL (8.4-10.2); CARBON DIOXIDE 26 mmol/L (22-30); CHLORIDE 108 mmol/L (98-107); CREATININE RESULT 0.75 mg/dL (0.52-1.25); GLUCOSE 136 mg/dL (75-110); POTASSIUM 3.9 mmol/L (3.6-5.0); SODIUM 147.1 mmol/L (137-145); TOTAL PROTEIN 6.7 g/dL (6.3-8.2)
[2017-02-13] MEDS ORDERED: CLINDAMYCIN HCL 150 MG CAPSULE PO ONE (03:48)
[2017-02-13 03:58] LABS: ALCOHOL 402 mg/dL (NONE DETECTED)
[2017-02-13 05:38] LABS: APPEARANCE,URINE CLEAR; BILIRUBIN,URINE NEGATIVE (NEGATIVE); GLUCOSE, URINE NEGATIVE (NEGATIVE); KETONES,URINE NEGATIVE (NEGATIVE); LEUKOCYTE ESTERASE,URINE NEGATIVE (NEGATIVE); NITRITE,URINE NEGATIVE (NEGATIVE); PROTEIN,URINE NEGATIVE (NEGATIVE); URINE SPECIFIC GRAVITY 1.001; UROBILINOGEN,URINE NEGATIVE mg/dL (<2.0)
[2017-02-13 05:53] LABS: URINE BARBITURATES SCREEN NEGATIVE; URINE METHADONE SCREEN NEGATIVE; URINE OPIATES LOW NEGATIVE; URINE PHENCYCLIDINE SCREEN NEGATIVE
--- NOTE | 2017-02-13 12:23 | EKG REPORT ---
SEVERITY:- ABNORMAL ECG - SINUS RHYTHM NONSPECIFIC INTRAVENTRICULAR CONDUCTION DELAY : Confirmed by: Marianna Larry MD 13-Feb-2017 12:22:11
[2017-02-13] MEDS: GABAPENTIN 400 MG CAPSULE PO SCH (14:03)
[2017-02-13 14:19] VITALS: BP 139/98
--- NOTE | 2017-02-13 14:33 | ER Document Report ---
ED Psych Disorder / Suicide - General Chief Complaint: Rib Pain Stated Complaint: RIB PAIN,FACIAL LACERATION Time Seen by Provider: 02/13/17 03:02 TRAVEL OUTSIDE OF THE [place] IN LAST 30 DAYS: No - HPI Notes: Patient is a 31-year-old male who I took care of earlier in the day. At that time he eloped after having CT scans and x-rays performed. All his x-rays and CT scans were negative. He has come back now. He went home and drink more alcohol. He is back for reevaluation. He apparently was called and visited by the police because he had left the ER with his IV in place. Patient then agreed to come to the ER. Patient does admit to drinking more alcohol. I did talk to him about getting help for his alcohol use. He is agreeing to stay to try to get further help and to speak with psychiatry about inpatient and outpatient resources. Patient disclosed that he has been thinking about going first substance abuse treatment. He disclosed that he has gone to the [place] however is only for detox not treatment. He continued discussed that there are other plans that are 3 month treatment programs that he finds interesting. Patient states it is very difficult; attempted to quit some time ago "cold turkey" and reports suffering delirium from the withdrawal. Patient denies he wants to harm himself. Patient's mother is present. She disclosed the patient is having difficulty finding treatment because finances are limited. Patient is alert and orientated to person, place, time and circumstance. Mood is euthymic with congruent affect. Patient denies suicidal and homicidal ideation. Patient denies auditory and visual hallucinations. Patient reports suffering from delirium in the past when attempting to go cold turkey and was withdrawing from alcohol. Delusions are absent and behaviors congruent with intact reality based presentation i.e. organized, linear, and rational thinking. Eye contact was well-maintained. Intellectual abilities appear to be within the average range. Conversational speech was within the normal rate tone and prosody. Attention and concentration were good. Insight, judgment, impulse control appear to be poor due to substance abuse; alcohol. Clinician notes patient's right eye is observed to be a black eye. 303.90 (F10.20) alcohol related disorder; severe Impression\\plan: Patient is considered psychiatrically clear for discharge. Patient denies suicidal and homicidal ideation. Delusions were absent and behaviors congruent with intact reality based presentation i.e. organized, linear, rational thinking. Patient does not meet IVC criteria per [place] GS 122C. Patient and mother disclosed long-term struggle with alcohol abuse. Patient is willing to receive substance abuse treatment information for both outpatient and inpatient. Clinician provided substance abuse resource list. Patient is recommended follow-up with [facility] upon discharge. Dr. Marquez was consulted on the care and management of this patient; attending physician is agreement with recommendations and disposition. - Related Data Allergies/Adverse Reactions: No Known Allergies Allergy (Verified 12/06/13 12:51) Home Medications: Current Home Medications Diazepam [Valium] 10 mg PO Q8HP PRN 02/13/17 [History] Escitalopram Oxalate [Lexapro 10 mg Tablet] 10 mg PO DAILY 02/13/17 [History] Hydroxyzine Pamoate [Vistaril 50 mg Capsule] 50 mg PO Q8HP PRN 02/13/17 [History ] Lorazepam [Ativan 1 mg Tablet] 1 mg PO Q8 02/13/17 [History] Past Medical History - Social History Smoking Status: Current Some Day Smoker Frequency of alcohol use: Heavy Drug Abuse: None Family History: None Patient has suicidal ideation: No Patient has homicidal ideation: No Renal/ Medical History: Denies: Hx Peritoneal Dialysis Psychiatric Medical History: Reports: Hx Depression - Immunizations Hx Diphtheria, Pertussis, Tetanus Vaccination: Yes Physical Exam - Vital signs Vitals: Temp Pulse Resp BP Pulse Ox 97.5 F 101 H 20 123/76 98 02/13/17 03:01 02/13/17 03:01 02/13/17 03:01 02/13/17 03:01 02/13/17 03:01 Course - Vital Signs Vital signs: Temp Pulse Resp BP Pulse Ox 98.5 F 100 18 139/98 H 100 02/13/17 14:18 02/13/17 14:18 02/13/17 14:18 02/13/17 14:18 02/13/17 14:18 - Laboratory Result Diagrams: 02/13/17 03:13 02/13/17 03:13 Laboratory results interpreted by me: 02/13/17 02/13/17 03:13 03:13 RBC 2.94 L Hgb 9.5 L Hct 27.0 L Sodium 147.1 H Chloride 108 H BUN 6 L Glucose 136 H Salicylates < 1.0 L Acetaminophen < 10 L Serum Alcohol 402 H* Discharge - Discharge Clinical Impression: Laceration Alcohol intoxication Qualifiers: Complication of substance-induced condition: uncomplicated Qualified Code(s): F10.920 - Alcohol use, unspecified with intoxication, uncomplicated Condition: Stable Disposition: PSYCH HOSP/UNIT Additional Instructions: I have sent prescriptions to your [facility] pharmacy on [facility]. They are waiting for you to pick them up there once you are discharged. Please return to the ER immediately if you have any redness or swelling of your laceration, fevers, foul smelling drainage from the cut, symptoms of worsening withdrawal despite taking the medications, any seizure-like activity, or if you feel that you are worsening in any way. Please try to cut back on her alcohol. Continued use of large amounts of alcohol will lead to your . Referrals: LUIS CARLOS BERMEO DO [Primary Care Provider] - 02/15/17
== END 2017-02-13 14:19 | disposition home or self-care (01) ==
LOC: ER 02:57
PROC: 0HQ1XZZ Repair Face Skin, External Approach (ICD-10-PCS; principal; 2017-02-13)
DX: S01.81XA Laceration without foreign body of other part of head, initial encounter (principal); X58.XXXA Exposure to other specified factors, initial encounter; F10.120 Alcohol abuse with intoxication, uncomplicated; Y90.8 Blood alcohol level of 240 mg/100 ml or more; F17.200 Nicotine dependence, unspecified, uncomplicated
CPT/HCPCS: 36415; 80053; 80307; 81001; 85025; 93005; 93010; 99284

== ENCOUNTER 2017-02-15 16:33 | Emergency (ER) | payer SELFPAY ==
--- NOTE | 2017-02-15 17:32 | ER Document Report ---
ED Wound - General Mode of Arrival: Stretcher Information source: Patient TRAVEL OUTSIDE OF THE [place] IN LAST 30 DAYS: No - HPI Patient complains to provider of: Laceration Occurred: Other - 3 days ago Quality of pain: Achy Severity: Mild Pain Level: 2 Context: Injury Associated Symptoms: Dehiscence <PRUDENCE MCCLELLAND - Last Filed: 02/15/17 19:20> <JODIE SALGUERO - Last Filed: 02/16/17 02:59> - General Chief Complaint: ETOH Abuse Stated Complaint: RIGHT EYE LACERATION Time Seen by Provider: 02/15/17 17:28 - HPI Notes: Patient is a 31-year-old male presenting to the emergency room today complaining of wound dehiscence in the right eyebrow, he was seen in this emergency room 3 days ago now for similar symptoms, having had a wound to the forehead from at least 24 hours prior after falling, while he was here on the 26 the wound was cleaned and Steri-Strips were placed, patient admits that he took the Steri-Strips off today because he thought his wound was better, on arrival he smells of alcohol, and has slurred speech consistent with acute alcohol intoxication, the wound to his forehead does appear to be open with slight sanguinous drainage (PRUDENCE MCCLELLAND) - Related Data Allergies/Adverse Reactions: No Known Allergies Allergy (Verified 12/06/13 12:51) Past Medical History - General Information source: Patient, Parent - Social History Smoking Status: Current Every Day Smoker Frequency of alcohol use: Heavy Drug Abuse: None Family History: None Patient has suicidal ideation: No Patient has homicidal ideation: No Renal/ Medical History: Denies: Hx Peritoneal Dialysis Psychiatric Medical History: Reports: Hx Depression - Immunizations Hx Diphtheria, Pertussis, Tetanus Vaccination: Yes <PRUDENCE MCCLELLAND - Last Filed: 02/15/17 19:20> Review of Systems - Review of Systems Constitutional: No symptoms reported EENT: No symptoms reported Cardiovascular: No symptoms reported Respiratory: No symptoms reported Gastrointestinal: No symptoms reported Genitourinary: No symptoms reported Male Genitourinary: No symptoms reported Musculoskeletal: No symptoms reported Skin: See HPI Hematologic/Lymphatic: No symptoms reported Neurological/Psychological: See HPI -: Yes All other systems reviewed and negative <PRUDENCE MCCLELLAND - Last Filed: 02/15/17 19:20> Physical Exam - Vital signs Interpretation: Normal - General General appearance: Alert In distress: None - HEENT Head: Normocephalic, Other - Patient has a 5 cm laceration to the right eyebrow which is chronic in nature, it is dehisced, there is a small amount of sanguinous drainage, with periorbital ecchymosis of the right eye as well Eyes: Normal Conjunctiva: Normal Extraocular movements intact: Yes Eyelashes: Normal Pupils: PERRL Sinus: Normal Nasal: Normal Mouth/Lips: Normal Mucous membranes: Normal Pharynx: Normal Neck: Normal - Respiratory Respiratory status: No respiratory distress Chest status: Nontender Breath sounds: Normal Chest palpation: Normal - Cardiovascular Rhythm: Regular Heart sounds: Normal auscultation Murmur: No - Abdominal Inspection: Normal Distension: No distension Bowel sounds: Normal Tenderness: Nontender Organomegaly: No organomegaly - Back Back: Normal, Nontender - Extremities General upper extremity: Normal inspection, Nontender, Normal color, Normal ROM , Normal temperature General lower extremity: Normal inspection, Nontender, Normal color, Normal ROM , Normal temperature, Normal weight bearing. No: Arie's sign - Neurological Neuro grossly intact: Yes Cognition: Confused Orientation: Disoriented to events [place] Coma Scale Eye Opening: Spontaneous [place] Coma Scale Verbal: Confused [place] Coma Scale Motor: Obeys Commands [place] Coma Scale Total: 14 Speech: Other - Slightly slurred Motor strength normal: LUE, RUE, LLE, RLE Sensory: Normal - Skin Skin Temperature: Warm Skin Moisture: Dry Skin Color: Normal <PRUDENCE MCCLELLAND - Last Filed: 02/15/17 19:20> <JODIE SALGUERO - Last Filed: 02/16/17 02:59> - Vital signs Vitals: Temp Pulse Resp BP Pulse Ox 98.0 F 85 16 139/88 H 99 02/15/17 16:58 02/15/17 16:58 02/15/17 16:58 02/15/17 16:58 02/15/17 16:58 - General Notes: Smells of EtOH (PRUDENCE MCCLELLAND) Course - Laboratory Result Diagrams: 02/15/17 18:29 02/15/17 18:29 - Diagnostic Test Radiology reviewed: Image reviewed, Reports reviewed <PRUDENCE MCCLELLAND - Last Filed: 02/15/17 19:20> - Laboratory Result Diagrams: 02/15/17 18:29 02/15/17 18:29 <JODIE SALGUERO - Last Filed: 02/16/17 02:59> - Re-evaluation Re-evalutation: 02/15/17 18:36 Called to room by nursing staff as patient was being discharged and became unresponsive, as I entered the room patient is unresponsive, although he is breathing and has good pulses, he appears to be having a seizure as he is slight facial and eyelid twitching, patient is a known alcoholic, has a history of an alcohol withdrawal seizure in the past, although he states he had 4-6 beers today and smells of alcohol on his breath 02/15/17 19:11 Patient is awake and alert, continues to have slurred speech, consistent with acute alcohol intoxication, blood alcohol level is 369, he has had several falls recently resulting in a head injury with laceration that continues to tie his because patient is not properly caring for it, he does appear to have had a mild seizure while in the emergency room today, although he does report a history of having seizures once or twice in the past, it is usually related to alcohol withdrawal, which he does not appear to be having today, we will continue to monitor patient in the department until he is clinically sober and can be safely discharged into his mother's care, she reports that she will assist patient in getting into long-term rehab or detox placement once he is medically cleared (PRUDENCE MCCLELLAND) 02/16/17 02:07 Pt was in the emergency room earlier today and he was being observed for alcohol intoxication with an EtOH level 369. He walked out of the ER around 01:00 and then called 911 again. He would not elaborate why. Suspect that he may have had additional alcohol to drink. Will monitor until he is clinically sober and then discharge patient. 02/16/17 02:58 Pt would like to be discharged. He is ambulating around the ER with a steady gait and has no slurred speech. Clinically, he is sober. Offered him detox, but he said he is not interested at this time. (JODIE SALGUERO) - Vital Signs Vital signs: Temp Pulse Resp BP Pulse Ox 98.0 F 85 16 131/91 H 98 02/15/17 16:58 02/15/17 16:58 02/15/17 18:33 02/15/17 18:31 02/15/17 18:31 - Laboratory Laboratory results interpreted by me: 02/15/17 02/15/17 18:29 18:29 WBC 3.9 L RBC 3.19 L Hgb 10.6 L Hct 29.7 L RDW 14.2 H Sodium 150.5 H Chloride 111 H BUN 6 L AST 63 H Serum Alcohol 369 H* Discharge <PRDUENCE MCCLELLAND - Last Filed: 02/15/17 19:20> <JODIE SALGUERO - Last Filed: 02/16/17 02:59> - Discharge Clinical Impression: Laceration, Seizure Alcohol intoxication Qualifiers: Complication of substance-induced condition: with unspecified complication Qualified Code(s): F10.929 - Alcohol use, unspecified with intoxication, unspecified Facial contusion Qualifiers: Encounter type: sequela Qualified Code(s): S00.83XS - Contusion of other part of head, sequela Condition: Stable Disposition: HOME, SELF-CARE Instructions: Acute Alcohol Intoxication ([facility]), Chronic Alcoholism ([facility]), New Seizure ([facility]), Care of Steri-Strip Closure ([facility]) Additional Instructions: Leave Steri-Strips in place until they fall off on their own. Your wound should be healed by then. Follow-up with outpatient detox/rehab services for further assistance regarding alcohol treatment. Return to the emergency room immediately if symptoms worsen or any additional concerns. Prescriptions: Chlordiazepoxide HCl [Librium 25 mg Capsule] 50 mg PO QID PRN #30 capsule PRN Reason: Referrals: LUIS CARLOS BERMEO DO [Primary Care Provider] - Follow up as needed
[2017-02-15 18:38] LABS: ABSOLUTE MONOCYTES (AUTO) 0.2 10^3/uL (0.1-1.4); ABSOLUTE NEUT (AUTO) 2.6 10^3/uL (1.7-8.2); BASOPHILS % (AUTO) 0.6 % (0-2); EOSINOPHILS % (AUTO) 0.5 % (0-6); HEMATOCRIT 29.7 % (37.9-51.0); HEMOGLOBIN 10.6 g/dL (13.5-17.0); HGB HCT DIFFERENCE 2.1; LYMPHOCYTES % (AUTO) 26.3 % (13-45); MEAN CORPUSCULAR HEMOGLOBIN 33.2 pg (27.0-33.4); MEAN CORPUSCULAR HGB CONC 35.6 g/dL (32.0-36.0); MEAN CORPUSCULAR VOLUME 93 fl (80-97); MONOCYTES % (AUTO) 5.9 % (3-13); RED BLOOD COUNT 3.19 10^6/uL (4.35-5.55); RED CELL DISTRIBUTION WIDTH 14.2 % (11.5-14.0); SEGMENTED NEUTROPHILS % (AUTO) 66.7 % (42-78); WHITE BLOOD COUNT 3.9 10^3/uL (4.0-10.5)
[2017-02-15 18:50] LABS: ALANINE AMINOTRANSFERASE 37 U/L (21-72); ALBUMIN 4.2 g/dL (3.5-5.0); ALKALINE PHOSPHATASE 62 U/L (38-126); ANION GAP 14 (5-19); ASPARTATE AMINO TRANSFERASE 63 U/L (17-59); BILIRUBIN,DIRECT 0.3 mg/dL (0.0-0.4); BILIRUBIN,TOTAL 0.3 mg/dL (0.2-1.3); BLOOD UREA NITROGEN 6 mg/dL (7-20); CALCIUM 8.6 mg/dL (8.4-10.2); CARBON DIOXIDE 26 mmol/L (22-30); CHLORIDE 111 mmol/L (98-107); CREATININE RESULT 0.75 mg/dL (0.52-1.25); GLUCOSE 99 mg/dL (75-110); POTASSIUM 4.3 mmol/L (3.6-5.0); SODIUM 150.5 mmol/L (137-145); TOTAL PROTEIN 6.9 g/dL (6.3-8.2)
[2017-02-15 18:57] VITALS: BP 131/91
[2017-02-15 18:59] LABS: ALCOHOL 369 mg/dL (NONE DETECTED)
[2017-02-15] MEDS ORDERED: NORMAL SALINE 1000 ML 1,000 ML IV PRN (19:02)
--- NOTE | 2017-02-15 19:06 | RADIOLOGY REPORT (SQ) ---
EXAM DESCRIPTION: CT HEAD WITHOUT COMPLETED DATE/TIME: 02/15/2017 6:51 pm REASON FOR STUDY: injury COMPARISON: None. TECHNIQUE: Axial images acquired through the brain without intravenous contrast. Images reviewed wi th bone, brain and subdural windows. Images stored on PACS. All CT scanners at this facility use dose modulation, iterative reconstruction, and/or weight based d osing when appropriate to reduce radiation dose to as low as reasonably achievable (ALARA). [facility]: Dose Right [facility]: CareDose [facility]: Dose Right [facility]: Teradose 4D [facility]: Smart Heroic RADIATION DOSE: Up-to-date CT equipment and radiation dose reduction techniques were employed. CTDIv ol: 64.6 mGy. DLP: 1163 mGy-cm. mGy. LIMITATIONS: None. FINDINGS: VENTRICLES: Normal size and contour. CEREBRUM: No masses. No hemorrhage. No midline shift. No evidence for acute infarction. Normal gra y/white matter differentiation. No areas of low density in the white matter. CEREBELLUM: No masses. No hemorrhage. No alteration of density. No evidence for acute infarction. EXTRAAXIAL SPACES: No fluid collections. No masses. ORBITS AND GLOBE: No intra- or extraconal masses. Normal contour of globe without masses. CALVARIUM: No fracture. PARANASAL SINUSES: No fluid or mucosal thickening. SOFT TISSUES: Right supraorbital soft tissue injury. No radiopaque foreign body. OTHER: No other significant finding. IMPRESSION: SOFT TISSUE INJURY WITHOUT FRACTURE OR ACUTE INTRACRANIAL PROCESS. EVIDENCE OF ACUTE STROKE: NO. COMMENT: Quality ID # [id number]: Final reports with documentation of one or more dose reduction techniques (e.g., Automated exposure control, adjustment of the mA and/or kV according to patient size, use of iterative reconstruction technique) TECHNICAL DOCUMENTATION: JOB ID: [email or web address]- All Rights Reserved
[2017-02-15 19:08] LABS: URINE BARBITURATES SCREEN NEGATIVE; URINE METHADONE SCREEN NEGATIVE; URINE OPIATES LOW NEGATIVE; URINE PHENCYCLIDINE SCREEN NEGATIVE
[2017-02-15 19:16] LABS: APPEARANCE,URINE CLEAR; BILIRUBIN,URINE NEGATIVE (NEGATIVE); GLUCOSE, URINE NEGATIVE (NEGATIVE)
[2017-02-15 19:17] LABS: KETONES,URINE NEGATIVE (NEGATIVE); LEUKOCYTE ESTERASE,URINE NEGATIVE (NEGATIVE); NITRITE,URINE NEGATIVE (NEGATIVE); PROTEIN,URINE NEGATIVE (NEGATIVE); URINE SPECIFIC GRAVITY 1.002; UROBILINOGEN,URINE NEGATIVE mg/dL (<2.0)
[2017-02-15] MEDS ORDERED: LORAZEPAM INJ 2 MG/1 ML VIAL IV PRN (19:17)
[2017-02-15 19:18] LABS: RBC,URINE NONE SEEN /HPF
[2017-02-15 19:19] LABS: WBC,URINE NONE SEEN /HPF
== END 2017-02-16 03:15 | disposition home or self-care (01) ==
LOC: ER 16:33
DX: T81.33XA Disruption of traumatic injury wound repair, initial encounter (principal); Y83.8 Other surgical procedures as the cause of abnormal reaction of the patient, or of later complication, without mention of misadventure at the time of the procedure; F10.229 Alcohol dependence with intoxication, unspecified; Y90.8 Blood alcohol level of 240 mg/100 ml or more; R25.3 Fasciculation; F17.200 Nicotine dependence, unspecified, uncomplicated; Z91.81 History of falling
CPT/HCPCS: 36415; 70450; 80053; 80307; 81001; 83735; 85025; 99284

== ENCOUNTER 2017-04-12 12:58 | Emergency (ER) | payer SELFPAY ==
[2017-04-12 13:12] VITALS: BP 134/90
--- NOTE | 2017-04-12 13:25 | ER Document Report ---
ED Medical Screen (RME) - General Chief Complaint: Seizure Stated Complaint: POSSIBLE SEIZURE Time Seen by Provider: 04/12/17 13:19 Notes: Patient says he has been experiencing seizures since October. Says he has had 3 seizures today. He was on phenobarbital for a while but they did not seem to help. He is been referred to a neurologist, but does not have insurance or money to go. He says that the seizures are probably related to alcohol because he has a problem with alcoholism. He has been through detox previously. Only current medication is Valium as needed. Patient admits to drinking 3 beers this morning. Has not had any difficulty breathing or shortness of breath. Has had some left-sided chest pain today. Also complaining of a headache and neck pain, but they have been present for some time. Patient had a CT scan of his brain done here approximately 2 months ago after a fall. The scan at that time was normal. TRAVEL OUTSIDE OF THE [place] IN LAST 30 DAYS: No - Related Data Allergies/Adverse Reactions: No Known Allergies Allergy (Verified 04/12/17 13:12) Past Medical History - Social History Chew tobacco use (# tins/day): No Frequency of alcohol use: Heavy Drug Abuse: None Renal/ Medical History: Denies: Hx Peritoneal Dialysis Psychiatric Medical History: Reports: Hx Depression - Immunizations Hx Diphtheria, Pertussis, Tetanus Vaccination: Yes Physical Exam - Vital signs Vitals: Temp Pulse Resp BP Pulse Ox 97.5 F 106 H 18 134/90 H 97 04/12/17 13:10 04/12/17 13:10 04/12/17 13:10 04/12/17 13:10 04/12/17 13:10 Course - Vital Signs Vital signs: Temp Pulse Resp BP Pulse Ox 97.5 F 106 H 18 134/90 H 97 04/12/17 13:10 04/12/17 13:10 04/12/17 13:10 04/12/17 13:10 04/12/17 13:10
[2017-04-12 13:55] LABS: ABSOLUTE EOSINOPHILS # (AUTO) 0.1 10^3/uL (0.0-0.6); ABSOLUTE LYMPHOCYTES (AUTO) 2.3 10^3/uL (0.5-4.7); ABSOLUTE MONOCYTES (AUTO) 0.3 10^3/uL (0.1-1.4); ABSOLUTE NEUT (AUTO) 3.4 10^3/uL (1.7-8.2); BASOPHILS % (AUTO) 0.5 % (0-2); EOSINOPHILS % (AUTO) 0.9 % (0-6); HEMATOCRIT 44.4 % (37.9-51.0); HGB HCT DIFFERENCE 0.6; MEAN CORPUSCULAR HEMOGLOBIN 27.3 pg (27.0-33.4); MEAN CORPUSCULAR HGB CONC 33.8 g/dL (32.0-36.0); MEAN CORPUSCULAR VOLUME 81 fl (80-97); MONOCYTES % (AUTO) 4.3 % (3-13); RED BLOOD COUNT 5.49 10^6/uL (4.35-5.55); RED CELL DISTRIBUTION WIDTH 15.5 % (11.5-14.0); SEGMENTED NEUTROPHILS % (AUTO) 56.3 % (42-78)
[2017-04-12 14:20] LABS: ALANINE AMINOTRANSFERASE 55 U/L (21-72); ALBUMIN 5.1 g/dL (3.5-5.0); ALKALINE PHOSPHATASE 78 U/L (38-126); ASPARTATE AMINO TRANSFERASE 37 U/L (17-59); BILIRUBIN,DIRECT 0.2 mg/dL (0.0-0.4); BILIRUBIN,TOTAL 0.4 mg/dL (0.2-1.3); BLOOD UREA NITROGEN 8 mg/dL (7-20); CALCIUM 8.8 mg/dL (8.4-10.2); CREATININE RESULT 0.71 mg/dL (0.52-1.25); GLUCOSE 97 mg/dL (75-110); LIPASE 62.6 U/L (23-300); MAGNESIUM 1.9 mg/dL (1.6-2.3); TOTAL PROTEIN 8.1 g/dL (6.3-8.2)
[2017-04-12 14:30] LABS: CARBON DIOXIDE 26 mmol/L (22-30); CHLORIDE 101 mmol/L (98-107); POTASSIUM 4.3 mmol/L (3.6-5.0); SODIUM 147.5 mmol/L (137-145)
[2017-04-12 14:35] LABS: ANION GAP 21 (5-19)
--- NOTE | 2017-04-12 14:41 | EKG REPORT ---
SEVERITY:- BORDERLINE ECG - SINUS RHYTHM BORDERLINE IVCD WITH LAD : Confirmed by: Marianna Larry MD 12-Apr-2017 14:40:24
--- NOTE | 2017-04-12 14:51 | ER Document Report ---
ED General - General Chief Complaint: Seizure Stated Complaint: POSSIBLE SEIZURE Time Seen by Provider: 04/12/17 13:19 Mode of Arrival: Medic Information source: Patient Notes: 31-year-old male presents with complaints of seizure-like activity.. Patient notes that he has a history of seizures used to be on phenobarbital for it. Patient admits to drinking 3-4 beers prior to arrival. Patient's seizure-like activity has been reviewed by staff where he is not actually seizing lays on the ground and states that he is having a seizure TRAVEL OUTSIDE OF THE [place] IN LAST 30 DAYS: No - HPI Onset: Just prior to arrival Onset/Duration: Sudden Quality of pain: No pain Severity: None Pain Level: Denies Associated symptoms: Other Exacerbated by: Denies Relieved by: Denies Similar symptoms previously: Yes Recently seen / treated by doctor: No - Related Data Allergies/Adverse Reactions: No Known Allergies Allergy (Verified 04/12/17 13:12) Past Medical History - Social History Smoking Status: Never Smoker Cigarette use (# per day): No Chew tobacco use (# tins/day): No Smoking Education Provided: No Frequency of alcohol use: Heavy Drug Abuse: None Family History: None Patient has suicidal ideation: No Patient has homicidal ideation: No Renal/ Medical History: Denies: Hx Peritoneal Dialysis Psychiatric Medical History: Reports: Hx Depression - Immunizations Hx Diphtheria, Pertussis, Tetanus Vaccination: Yes Review of Systems - Review of Systems Notes: REVIEW OF SYSTEMS: CONSTITUTIONAL : Denies fever, chills, or sweats. Denies recent illness. EENT: Denies eye, ear, throat, or mouth pain or symptoms. Denies nasal or sinus congestion or discharge. Denies throat, tongue, or mouth swelling or difficulty swallowing. CARDIOVASCULAR: Denies chest pain. Denies palpitations or racing or irregular heart beat. Denies ankle edema. RESPIRATORY: Denies cough, cold, or chest congestion. Denies shortness of breath, difficulty breathing, or wheezing. GASTROINTESTINAL: Denies abdominal pain or distention. Denies nausea, vomiting , or diarrhea. Denies blood in vomitus, stools, or per rectum. Denies black, tarry stools. Denies constipation. GENITOURINARY: Denies difficulty urinating, painful urination, burning, frequency, blood in urine, or discharge. MUSCULOSKELETAL: Denies back or neck pain or stiffness. Denies joint pain or swelling. SKIN: Denies rash, lesions or sores. HEMATOLOGIC : Denies easy bruising or bleeding. LYMPHATIC: Denies swollen, enlarged glands. NEUROLOGICAL: Admits to seizure-like activity PSYCHIATRIC: Denies anxiety or stress. Denies depression, suicidal ideation, or homicidal ideation. ALL OTHER SYSTEMS REVIEWED AND NEGATIVE. Dictation was performed using [employer] voice recognition software PHYSICAL EXAMINATION: GENERAL: Well-appearing, well-nourished and in no acute distress. Patient is obviously intoxicated HEAD: Atraumatic, normocephalic. EYES: Pupils equal round and reactive to light, extraocular movements intact, sclera anicteric, conjunctiva are normal. ENT: Nares patent, oropharynx clear without exudates. Moist mucous membranes. NECK: Normal range of motion, supple without lymphadenopathy LUNGS: Breath sounds clear to auscultation bilaterally and equal. No wheezes rales or rhonchi. HEART: Regular rate and rhythm without murmurs ABDOMEN: Soft, nontender, nondistended abdomen. No guarding, no rebound. No masses appreciated. Musculoskeletal: Normal range of motion, no pitting or edema. No cyanosis. NEUROLOGICAL: Cranial nerves grossly intact. Normal speech, normal gait. Normal sensory, motor exams PSYCH: Normal mood, normal affect. SKIN: Warm, Dry, normal turgor, no rashes or lesions noted. Physical Exam - Vital signs Vitals: Temp Pulse Resp BP Pulse Ox 97.5 F 106 H 18 134/90 H 97 04/12/17 13:10 04/12/17 13:10 04/12/17 13:10 04/12/17 13:10 04/12/17 13:10 Course - Re-evaluation Re-evalutation: 04/12/17 14:50 Patient is obviously intoxicated, initially he refuses to answer any questions but when I asked him how much he drinks he immediately opens his eyes and states that he has been having 5-6 beers prior to arrival, he then states he has a history of seizure disorder since November the used to be on phenobarbital now he is on Valium. Patient is not postictal he is alert he is oriented It is noted that patient has been seen to place himself on the floor and state that he is seizing 04/12/17 15:00 Patient with the bars up on the sides of the bed managed to get off the bed lay himself on the floor security has been requested to assist the patient up I have requested restraints since the patient is refusing to stay in the bed and has injured himself in the past by getting out of bed, as a result since he is so intoxicated do not wish for him to harm himself the restraints were placed 04/12/17 22:33 Patient's family member did citrus picker the patient, strict return precautions have been provided to them, I do not believe the patient is withdrawing with a blood alcohol of greater than 400 After performing a Medical Screening Examination, I estimate there is LOW risk for ACUTE GLAUCOMA, TEMPORAL ARTERITIS, MENINGITIS, INCRANIAL HEMORRHAGE, or ISCHEMIC STROKE thus I consider the discharge disposition reasonable. I have reevaluated this patient multiple times and no significant life threatening changes are noted. The patient and I have discussed the diagnosis and risks, and we agree with discharging home with close follow-up with the understanding that symptoms and presentations can change. We also discussed returning to the Emergency Department immediately if new or worsening symptoms occur. We have discussed the symptoms which are most concerning (e.g., changing or worsening symptoms, new numbness or weakness, vomiting, fever) that necessitate immediate return. - Vital Signs Vital signs: Temp Pulse Resp BP Pulse Ox 97.5 F 106 H 18 134/90 H 97 04/12/17 13:10 04/12/17 13:10 04/12/17 13:10 04/12/17 13:10 04/12/17 13:10 - Laboratory Result Diagrams: 04/12/17 13:30 04/12/17 13:30 Laboratory results interpreted by me: 04/12/17 04/12/17 04/12/17 13:30 13:30 13:30 RDW 15.5 H Sodium 147.5 H Anion Gap 21 H Albumin 5.1 H Serum Alcohol 414 H* Discharge - Discharge Clinical Impression: Alcohol intoxication Qualifiers: Complication of substance-induced condition: uncomplicated Qualified Code(s): F10.920 - Alcohol use, unspecified with intoxication, uncomplicated Condition: Stable Disposition: HOME, SELF-CARE Additional Instructions: Please limit the amount that you have been drinking, return immediately if there are any other concerns
== END 2017-04-12 16:32 | disposition home or self-care (01) ==
LOC: ER 12:58
DX: R56.9 Unspecified convulsions (principal); F10.920 Alcohol use, unspecified with intoxication, uncomplicated
CPT/HCPCS: 36415; 80053; 80307; 83690; 83735; 84484; 85025; 93005; 93010; 99285

== ENCOUNTER 2017-04-13 19:14 | Emergency (ER) | payer SELFPAY ==
--- NOTE | 2017-04-13 19:30 | ER Document Report ---
ED General - General Chief Complaint: Probable Seizure Stated Complaint: POSSIBLE SEIZURES Time Seen by Provider: 04/13/17 19:30 Mode of Arrival: Medic Information source: Patient Notes: 31-year-old alcoholic presents with complaints of seizure-like activity. Patient was seen by myself yesterday noted to have been very intoxicated yesterday and was laying himself on the floor multiple times in trying to shake , no seizure activity was noted yesterday, patient notes he drank 6 beers a day and believes he is seizing again. Patient resting comfortably in the bed eyes are open he is responding to questioning TRAVEL OUTSIDE OF THE [place] IN LAST 30 DAYS: No - HPI Onset: Just prior to arrival Onset/Duration: Sudden Quality of pain: No pain Severity: None Pain Level: Denies Associated symptoms: Other Exacerbated by: Denies Relieved by: Denies Similar symptoms previously: Yes Recently seen / treated by doctor: Yes - Related Data Allergies/Adverse Reactions: No Known Allergies Allergy (Verified 04/12/17 13:12) Past Medical History - Social History Smoking Status: Never Smoker Cigarette use (# per day): No Chew tobacco use (# tins/day): No Smoking Education Provided: No Frequency of alcohol use: Heavy Family History: None Renal/ Medical History: Denies: Hx Peritoneal Dialysis Psychiatric Medical History: Reports: Hx Depression - Immunizations Hx Diphtheria, Pertussis, Tetanus Vaccination: Yes Review of Systems - Review of Systems Notes: REVIEW OF SYSTEMS: CONSTITUTIONAL : Denies fever, chills, or sweats. Denies recent illness. EENT: Denies eye, ear, throat, or mouth pain or symptoms. Denies nasal or sinus congestion or discharge. Denies throat, tongue, or mouth swelling or difficulty swallowing. CARDIOVASCULAR: Denies chest pain. Denies palpitations or racing or irregular heart beat. Denies ankle edema. RESPIRATORY: Denies cough, cold, or chest congestion. Denies shortness of breath, difficulty breathing, or wheezing. GASTROINTESTINAL: Denies abdominal pain or distention. Denies nausea, vomiting , or diarrhea. Denies blood in vomitus, stools, or per rectum. Denies black, tarry stools. Denies constipation. GENITOURINARY: Denies difficulty urinating, painful urination, burning, frequency, blood in urine, or discharge. MUSCULOSKELETAL: Denies back or neck pain or stiffness. Denies joint pain or swelling. SKIN: Denies rash, lesions or sores. HEMATOLOGIC : Denies easy bruising or bleeding. LYMPHATIC: Denies swollen, enlarged glands. NEUROLOGICAL: admits to seizures PSYCHIATRIC: Denies anxiety or stress. Denies depression, suicidal ideation, or homicidal ideation. ALL OTHER SYSTEMS REVIEWED AND NEGATIVE. Dictation was performed using [employer] voice recognition software PHYSICAL EXAMINATION: GENERAL: Well-appearing, well-nourished and in no acute distress. intxociated HEAD: Atraumatic, normocephalic. EYES: Pupils equal round and reactive to light, extraocular movements intact, sclera anicteric, conjunctiva are normal. ENT: Nares patent, oropharynx clear without exudates. Moist mucous membranes. NECK: Normal range of motion, supple without lymphadenopathy LUNGS: Breath sounds clear to auscultation bilaterally and equal. No wheezes rales or rhonchi. HEART: Regular rate and rhythm without murmurs ABDOMEN: Soft, nontender, nondistended abdomen. No guarding, no rebound. No masses appreciated. Musculoskeletal: Normal range of motion, no pitting or edema. No cyanosis. NEUROLOGICAL: Cranial nerves grossly intact. Normal speech, normal gait. Normal sensory, motor exams PSYCH: Normal mood, normal affect. SKIN: Warm, Dry, normal turgor, no rashes or lesions noted. Physical Exam - Vital signs Vitals: Resp Pulse Ox 16 95 04/13/17 19:33 04/13/17 19:33 Course - Re-evaluation Re-evalutation: 04/13/17 19:54 Lab work pending I again have no suspicion for any seizure-like activity 04/13/17 20:38 I was notified patient is shaking , seizung, I entered the room, he is holding the handle shaking , I said the patients name and asked him to stop holding the bar and he did 04/14/17 03:16 Patient's alcohol level was noted to be elevated in the 300s, family member was called to come at the patient's request to pick him up After performing a Medical Screening Examination, I estimate there is LOW risk for INTRACRANIAL HEMORRHAGE, ISCHEMIC CVA, MALIGNANT DYSRHYTHMIA, ACUTE CORONARY SYNDROME, MENINGITIS, PULMONARY EMBOLISM, or SEPSIS thus I consider the discharge disposition reasonable. I have reevaluated this patient multiple times and no significant life threatening changes are noted. The patient and I have discussed the diagnosis and risks, and we agree with discharging home with close follow-up with the understanding that symptoms and presentations can change. We also discussed returning to the Emergency Department immediately if new or worsening symptoms occur. We have discussed the symptoms which are most concerning (e.g., changing or worsening pain, weakness, vomiting, fever) that necessitate immediate return. - Vital Signs Vital signs: Temp Pulse Resp BP Pulse Ox 21 H 125/91 H 98 04/13/17 22:00 04/13/17 22:15 04/13/17 22:15 - Laboratory Result Diagrams: 04/13/17 21:48 04/13/17 21:48 Laboratory results interpreted by me: 04/13/17 04/13/17 04/13/17 19:40 21:48 21:48 RDW 15.7 H Sodium 150.4 H Anion Gap 20 H Serum Alcohol 371 H* Discharge - Discharge Clinical Impression: Alcohol intoxication Qualifiers: Complication of substance-induced condition: uncomplicated Qualified Code(s): F10.920 - Alcohol use, unspecified with intoxication, uncomplicated Condition: Stable Disposition: HOME, SELF-CARE Instructions: Acute Alcohol Intoxication ([facility]) Additional Instructions: You have not seized in the emergency department, please decrease your alcohol use, your alcohol level was extremely high again
[2017-04-13 21:55] LABS: ABSOLUTE EOSINOPHILS # (AUTO) 0.1 10^3/uL (0.0-0.6); ABSOLUTE LYMPHOCYTES (AUTO) 2.8 10^3/uL (0.5-4.7); ABSOLUTE MONOCYTES (AUTO) 0.3 10^3/uL (0.1-1.4); ABSOLUTE NEUT (AUTO) 3.2 10^3/uL (1.7-8.2); BASOPHILS % (AUTO) 0.7 % (0-2); EOSINOPHILS % (AUTO) 1.2 % (0-6); HEMATOCRIT 44.7 % (37.9-51.0); HEMOGLOBIN 15.1 g/dL (13.5-17.0); HGB HCT DIFFERENCE 0.6; LYMPHOCYTES % (AUTO) 43.7 % (13-45); MEAN CORPUSCULAR HEMOGLOBIN 27.5 pg (27.0-33.4); MEAN CORPUSCULAR HGB CONC 33.8 g/dL (32.0-36.0); MEAN CORPUSCULAR VOLUME 81 fl (80-97); MONOCYTES % (AUTO) 4.8 % (3-13); RED BLOOD COUNT 5.49 10^6/uL (4.35-5.55); RED CELL DISTRIBUTION WIDTH 15.7 % (11.5-14.0); SEGMENTED NEUTROPHILS % (AUTO) 49.6 % (42-78); WHITE BLOOD COUNT 6.4 10^3/uL (4.0-10.5)
[2017-04-13 22:23] VITALS: BP 125/91
[2017-04-13 22:25] LABS: ALANINE AMINOTRANSFERASE 53 U/L (21-72); ALBUMIN 4.9 g/dL (3.5-5.0); ALKALINE PHOSPHATASE 75 U/L (38-126); ASPARTATE AMINO TRANSFERASE 46 U/L (17-59); BILIRUBIN,DIRECT 0.4 mg/dL (0.0-0.4); BILIRUBIN,TOTAL 0.5 mg/dL (0.2-1.3); BLOOD UREA NITROGEN 10 mg/dL (7-20); CALCIUM 9.2 mg/dL (8.4-10.2); CREATININE RESULT 0.88 mg/dL (0.52-1.25); GLUCOSE 109 mg/dL (75-110); TOTAL PROTEIN 7.7 g/dL (6.3-8.2)
[2017-04-13 22:39] LABS: ANION GAP 20 (5-19); CARBON DIOXIDE 26 mmol/L (22-30); CHLORIDE 104 mmol/L (98-107); POTASSIUM 4.2 mmol/L (3.6-5.0); SODIUM 150.4 mmol/L (137-145)
== END 2017-04-13 22:25 | disposition home or self-care (01) ==
LOC: ER 19:14
DX: F10.920 Alcohol use, unspecified with intoxication, uncomplicated (principal)
CPT/HCPCS: 36415; 80053; 80307; 85025; 99284

== ENCOUNTER 2017-04-17 23:01 | Emergency (ER) | payer SELFPAY ==
[2017-04-18] MEDS ORDERED: GABAPENTIN 400 MG CAPSULE PO ONE (00:10)
[2017-04-18 00:38] LABS: ANION GAP 19 (5-19); BLOOD UREA NITROGEN 11 mg/dL (7-20); CALCIUM 9.2 mg/dL (8.4-10.2); CARBON DIOXIDE 22 mmol/L (22-30); CHLORIDE 101 mmol/L (98-107); CREATININE RESULT 0.96 mg/dL (0.52-1.25); GLUCOSE 103 mg/dL (75-110); MAGNESIUM 1.3 mg/dL (1.6-2.3); POTASSIUM 3.7 mmol/L (3.6-5.0); SODIUM 142.1 mmol/L (137-145)
--- NOTE | 2017-04-18 00:43 | RADIOLOGY REPORT (SQ) ---
EXAM DESCRIPTION: CT HEAD WITHOUT COMPLETED DATE/TIME: 04/18/2017 12:31 am REASON FOR STUDY: seizure, headache COMPARISON: CT head 02/15/2017, 02/13/2017. TECHNIQUE: Axial images acquired through the brain without intravenous contrast. Images reviewed wi th bone, brain and subdural windows. Images stored on PACS. All CT scanners at this facility use dose modulation, iterative reconstruction, and/or weight based d osing when appropriate to reduce radiation dose to as low as reasonably achievable (ALARA). [facility]: Dose Right [facility]: CareDose [facility]: Dose Right [facility]: Teradose 4D [facility]: GlobeSherpa RADIATION DOSE: mGy. LIMITATIONS: None. FINDINGS: VENTRICLES: Normal size and contour. CEREBRUM: No mass effect. No hemorrhage. No midline shift. Normal zapata/white matter differentiatio n. No evidence for acute territorial infarction. CEREBELLUM: No mass effect. No hemorrhage. No alteration of density. No evidence for acute infarct ion. EXTRAAXIAL SPACES: No fluid collections. ORBITS AND GLOBE: Symmetrical contour of the globes. CALVARIUM: No depressed skull fracture. PARANASAL SINUSES: No air-fluid level. Mild mucosal thickening in the maxillary sinuses. SOFT TISSUES: No hematoma. IMPRESSION: No acute intracranial hemorrhage or acute territorial infarct. EVIDENCE OF ACUTE STROKE: NO. COMMENT: Quality ID # [id number]: Final reports with documentation of one or more dose reduction techniques (e.g., Automated exposure control, adjustment of the mA and/or kV according to patient size, use of iterative reconstruction technique) TECHNICAL DOCUMENTATION: JOB ID: [id number] [place]-[id number] 2010 [employer]- All Rights Reserved
[2017-04-18] MEDS: MAGNESIUM SULFATE/D5W 1 GM/100 ML RTUPB IV SCH ×2 (01:39→03:04)
--- NOTE | 2017-04-18 03:40 | ER Document Report ---
ED General - General Chief Complaint: Probable Seizure Stated Complaint: POSSIBLE SEIZURES Time Seen by Provider: 04/17/17 23:58 TRAVEL OUTSIDE OF THE [place] IN LAST 30 DAYS: No - Related Data Allergies/Adverse Reactions: No Known Allergies Allergy (Verified 04/12/17 13:12) Past Medical History - Social History Smoking Status: Never Smoker Chew tobacco use (# tins/day): No Frequency of alcohol use: Occasional Drug Abuse: None Family History: None Patient has suicidal ideation: No Patient has homicidal ideation: No Renal/ Medical History: Denies: Hx Peritoneal Dialysis Psychiatric Medical History: Reports: Hx Depression - Immunizations Hx Diphtheria, Pertussis, Tetanus Vaccination: Yes Physical Exam - Vital signs Vitals: Temp Pulse Resp BP Pulse Ox 98.1 F 138 H 22 H 138/85 H 97 04/17/17 23:09 04/17/17 23:09 04/17/17 23:09 04/17/17 23:09 04/17/17 23:09 Course - Re-evaluation Re-evalutation: 04/18/17 03:45 Patient is well-appearing. When he first arrived he was tachycardic but his heart rate is completely normal at this time. His heart rate is in the 80s. His blood pressure is normal. Patient looks well. He does complain that he has been having seizures. I think most of seizures he has or not true seizures. He said he had 3 seizures tonight however he has [place] no tongue biting or signs of any oral trauma or any signs of trauma anywhere on his body that would be consistent with someone having multiple seizures throughout the day. Also on his previous 2 visits for seizures he had episodes where he threw himself on the ground and was having with the physician described as shaking why the patient was talking saying he was having a seizure. This again is not consistent with a true epileptic seizure. I suspect that he may have had a seizure in the past being that he is an alcoholic and does admit that sometimes he will have seizure-like activity if he goes without drinking. Therefore will place him on a gabapentin taper and talked about the importance of cutting back on his drinking until he is no longer drinking. I will still refer him to neurology so we can further workup. I do not think he needs to be placed on any antiepileptic at this time. Being that she did have a true seizure I think to be more likely related to alcohol withdrawal and not epilepsy. Patient will be discharged home. Dictation of this chart was performed using voice recognition software; therefore, there may be some unintended grammatical errors. - Vital Signs Vital signs: Temp Pulse Resp BP Pulse Ox 98.1 F 138 H 18 151/87 H 97 04/17/17 23:09 04/17/17 23:09 04/17/17 23:22 04/17/17 23:22 04/17/17 23:22 - Laboratory Result Diagrams: 04/17/17 23:26 Laboratory results interpreted by me: 04/17/17 23:26 Magnesium 1.3 L Discharge - Discharge Clinical Impression: Alcohol abuse, Hypomagnesemia Condition: Good Disposition: HOME, SELF-CARE Additional Instructions: Please continue to cutback on your alcohol use until you are no longer using drinking alcohol. Please join alcoholics anonymous or another alcohol support program. Please take the gabapentin as prescribed to help prevent alcohol withdrawl. Please take this medication until completed as it tapers down to a lower dose to help prevent any side effects that can occur when you stop the medication abruptly at a high dose. Please follow up with the neurologist for further testing of seizures. Return to the ER if you have recurrent seizures. Prescriptions: Gabapentin 400 mg PO ASDIR PRN #22 capsule PRN Reason: Referrals: JOANIE STAUFFER MD [ACTIVE STAFF] - 04/22/17 (call the office to make a follow up appointment.)
[2017-04-18 04:24] VITALS: BP 124/84
== END 2017-04-18 04:24 | disposition home or self-care (01) ==
LOC: ER 23:01
DX: F10.20 Alcohol dependence, uncomplicated (principal); E83.42 Hypomagnesemia
CPT/HCPCS: 99284; 96365; 96366; 36415; 83735; 80048; 70450; J3475